=== PATIENT | male | born 1985 | race Caucasian/White ===

== ENCOUNTER → 2018-05-29 | Outpatient (CLI) | payer BC ==
--- NOTE | 2018-05-29 08:59 | RAD ---
Ultrasound soft tissue neck 05/29/2018 CLINICAL INDICATION: Left posterior neck lump. COMPARISON: None. FINDINGS: In the area of palpable concern at the right posterior neck soft tissues, multiple grayscale and color Doppler images were obtained. In the area of palpable interest, there is an oval mass in the subcutaneous tissues with similar echogenic appearance to the adjacent subcutaneous fat with no internal vascularity measuring 2.6 x 1.0 x 1.8 cm. IMPRESSION: In the area of palpable interest of the right posterior neck, there is a lipoma. Electronically signed by: Frank Chaidez MD (05/29/2018 8:56 AM) [id number]
== END | disposition home or self-care (01) ==
LOC: US 07:48
PROVIDERS: ATTEND Physician Assistant
DX: R22.1 Localized swelling, mass and lump, neck (principal)
CPT/HCPCS: 76536

== ENCOUNTER → 2020-05-22 | Outpatient (CLI) | payer BC ==
--- NOTE | 2020-05-22 14:59 | RAD ---
Ultrasound testes and scrotum HISTORY: Epididymitis with burning sensation under scrotum Sonographic sedation scrotal contents and testes was performed and multiple static images were obtained. FINDINGS: The testes are mostly homogeneous with normal blood flow. The right testis measures 5.4 x 3.8 x 2.4 cm. The left testis measures 5.2 x 3.9 x 2.5 cm. There is a 2 mm cyst in the right testis. The epididymis appears normal bilaterally. IMPRESSION: No significant findings. Electronically signed by: Travis Griffin III, MD (05/22/2020 2:55 PM) [facility]
== END ==
LOC: US 13:54
PROVIDERS: ATTEND Family Medicine
DX: N44.2 Benign cyst of testis (principal); N45.1 Epididymitis
CPT/HCPCS: 76870